=== PATIENT | female | born 1995 | race Caucasian/White ===

== ENCOUNTER 2018-03-04 00:40 | Emergency (ER) | payer SELFPAY ==
[~2018-03-04 00:40] MED LIST: DIVA-1 PO
[2018-03-04 00:42] VITALS: BP 119/90
--- NOTE | 2018-03-04 00:51 | ER Report ---
History and Physical Time Seen By MD: 00:39 Hx. of Stated Complaint: PT HAS BEEN PICKED UP FOR DUI. IS UNDER ARREST. HPI/ROS CHIEF COMPLAINT: group home clearance HISTORY OF PRESENT ILLNESS: This is a 22 year old female. Under arrest after picked up for DUI. She had no complaints at this time. She has a seizure disorder and take Divalproex for this. She has no injuries tonight and denies pain. No complaint of current or recent illness. She has been drinking tonight and is intoxicated. Allergies: Coded Allergies: No Known Drug Allergies (Unverified , 03/04/18) Home Meds Reported Medications Divalproex Sodium (DEPAKOTE ER) 500 Mg Tab.er.24h, 500 MG PO QDAY, TAB 01/11/17 Reviewed Nurses Notes: Yes Hx Substance Use Disorder: No Hx Alcohol Use: No Constitutional Vital Sign - Last 24 Hours 03/04/18 00:42 Temp 97.5 Pulse 91 Resp 14 B/P (MAP) 119/90 Pulse Ox 93 O2 Delivery Room Air Physical Exam General Appearance: The patient is alert, has no immediate need for airway protection, signs of intoxication such as slowed response and slurred speech. Eyes: Pupils equal and round, with scleral injection. ENT: Normal oral mucosa. Moist mucous membranes. Tympanic membranes are normal. Neck: Neck is supple and non tender. Respiratory: Chest is non tender, lungs are clear to auscultation. Cardiac: regular rate and rhythm Gastrointestinal: Abdomen is soft and non tender, no masses, bowel sounds normal. Musculoskeletal: Extremities have full range of motion. Non tender. Skin: No rashes or lesions. DIFFERENTIAL DIAGNOSIS: After history and physical exam differential diagnosis was considered for alcohol intoxication and group home clearance. Medical Decision Making ED Course/Re-evaluation ED Course Other than alcohol intoxication, no problems noted on history or physical exam. Patient is cleared to go to group home with the [employer]. Decision to Disposition Date: March 04, 2018 Decision to Disposition Time: 00:50 Depart Departure Latest Vital Signs Vital Signs Date Time Temp Pulse Resp B/P (MAP) Pulse Ox O2 Delivery O2 Flow Rate FiO2 03/04/18 00:42 97.5 91 14 119/90 93 Room Air Impression: Primary Impression: Alcohol intoxication Condition: Improved Disposition: HOME OR SELF-CARE Patient Instructions: Alcohol Intoxication (ED) Additional Instructions: Because of the alcohol intoxication tonight, please make sure to take your seizure medication in the morning Problem Qualifiers Primary Impression: Alcohol intoxication Complication of substance-induced condition: uncomplicated Qualified Codes: F10.920 - Alcohol use, unspecified with intoxication, uncomplicated GABRIEL MERCADO MD March 04, 2018 00:51
== END 2018-03-04 01:07 | disposition home or self-care (01) ==
LOC: ER 00:45
DX: F10.920 Alcohol use, unspecified with intoxication, uncomplicated (principal)
CPT/HCPCS: 99281